=== PATIENT | male | born 1995 | race Caucasian/White ===

== ENCOUNTER 2016-05-30 14:54 | Emergency (ER) ==
[2016-05-30] MEDS ORDERED: NS 1,000 ML IV ONE (16:00)
[2016-05-30] MEDS ORDERED: ZOFRAN IV ONE (16:01)
[2016-05-30 16:21] LABS: MANUAL DIFF NEEDED? NO
[2016-05-30 16:23] LABS: BASO% 0.2 % (0.0-0.8); EOS# 0.03 X1000 (0.0-0.7); EOS% 0.4 % (0.0-10.0); HEMATOCRIT 44.1 % (42.0-52.0); HEMOGLOBIN 15.3 g/dL (14.0-18.0); IMM GRAN# 0.01 X1000 (0.0-0.04); IMM GRAN% 0.1 % (0.0-0.5); LYMPH# 0.72 X1000 (1.2-3.4); LYMPH% 8.7 % (20.5-51.1); MCH 30.2 PG (27-31); MCHC 34.7 g/dL (33-37); MCV 87.2 FL (81-99); MONO# 0.91 X1000 (0.11-0.59); MPV 11.2 FL (7.4-10.4); NEUT% 79.6 % (42.2-75.2); PLT 146 X1000 (130-400); RBC 5.06 XMIL (4.7-6.1)
[2016-05-30 16:38] LABS: AGAP 10; ALBUMIN 5.2 g/dL (3.5-5.0); ALKALINE PHOSPHATASE 77 U/L (32-122); BUN 11 mg/dL (8-22); CHLORIDE 99 mmol/L (98-107); COSMO 270; GOT 23 U/L (10-34); GPT 21 U/L (10-44); LIPASE 14 U/L (13-60); POTASSIUM 3.8 mmol/L (3.5-5.1); SODIUM 135 mmol/L (136-145); TCO2 27 mmol/L (25-35); TOTAL PROTEIN 7.7 g/dL (6.3-8.3)
[2016-05-30 17:14] LABS: URINE SOURCE CLEAN CATCH
[2016-05-30 17:24] LABS: BILIRUBIN URINE NEGATIVE (NEGATIVE); BLOOD URINE NEGATIVE (NEGATIVE); CLARITY CLEAR (CLEAR); COLOR YELLOW; GLUCOSE URINE NEGATIVE (NEGATIVE); LEUKOCYTES URINE TRACE (NEGATIVE); NITRITE URINE NEGATIVE (NEGATIVE); PROTEIN URINE TRACE mg/dL (NEGATIVE); UROBILINOGEN URINE NORMAL
[2016-05-30 17:32] LABS: URINE CAST NONE SEEN /LPF; URINE CRYSTAL NONE SEEN /HPF; URINE CULTURE PL NEEDED? YES; URINE EPITHELIAL CELLS <10 /HPF (<10); URINE WBC <10 /HPF (<10)
[2016-05-30 17:48] VITALS: BP 124/68
--- NOTE | 2016-05-30 18:10 | PROVIDER DOCUMENTATION ---
HPI-Abdominal Pain/GI Problem - General Chief Complaint: Nausea/Vomiting Stated Complaint: N/V/D Time Seen by Provider: 05/30/16 16:00 Source: patient, family Allergies/Adverse Reactions: Patient Allergies Allergy/AdvReac Type Severity Reaction Status Date / Time No Known Allergies Allergy Verified 10/16/15 17:57 Home Medications: Home Medication List Medication Instructions Recorded Confirmed Last Taken Type Ondansetron [Zofran] 4 mg PO Q6H PRN PRN #15 tablet 10/16/15 Unknown Rx Ondansetron Odt [Zofran 4 mg Odt] 4 mg PO Q6H PRN PRN #20 tablet 05/30/16 Unknown Rx - History of Present Illness-ABD Nature of Presenting Problems: This pt presents today c complaints of n/v X 24 hours. He and his parents report that he sometimes has "vomiting spells" where he vomits for 1-2 days and gets dehydrated. Denies any abdominal pains. No fever, chills. No other issues or complaints. Quality of Pain: reports: none Severity in ED: reports: moderate Onset/Duration: reports: 24 hours ago Timing: reports: still present Modifying Factors: improves with: vomiting Associated Symptoms: reports: nausea, vomiting Last BM: this morning Dark Stools Present?: reports: none noticed Rectal Bleeding: reports: none Rectal Pain: reports: none Emesis Description: reports: clear Bruising or Bleeding Gums?: No Similar Symptoms Previously?: Yes Recently seen or treated by another doctor?: No Review of Systems - Adult - REVIEW OF SYSTEMS - ADULT Constitutional: reports: no symptoms reported. denies: chills, fever Eyes: reports: no symptoms reported. denies: discharge, dry eyes Ears, Nose, Mouth & Throat: reports: no symptoms reported. denies: ear discharge, ear pain Cardiovascular: reports: no symptoms reported. denies: chest pain, edema Respiratory: reports: no symptoms reported. denies: chronic cough, cough Gastrointestinal: reports: nausea, vomiting. denies: abdominal pain, hematemesis, diarrhea, difficulty swallowing, rectal bleeding Genitourinary: reports: no symptoms reported. denies: dysuria, discharge Musculoskeletal: reports: no symptoms reported. denies: bone pain, back pain Integumentary: reports: no symptoms reported. denies: hives, hair loss Neurological: reports: no symptoms reported. denies: ataxia, dizziness/vertigo Psychiatric: reports: no symptoms reported. denies: anxiety, anti-depressant use Endocrine: reports: no symptoms reported Hematologic/Lymphatic: reports: no symptoms reported Allergic/Immunologic: reports: no symptoms reported All Other Systems: Reviewed and Negative Past History - Adult - PAST MEDICAL HISTORY-ADULT Review of Records: reports: Old Records Reviewed, Nursing Assessment Review, Medications Reviewed, Social history reviewed & non-contributory. Major Childhood Illnesses: reports: denies history Cardiovascular: reports: denies history Respiratory: reports: denies history Gastrointestinal: reports: denies history Obstetrical/Gynecological: reports: denies history Genitourinary: reports: denies history Musculoskeletal: reports: denies history Neurological: reports: denies history Psychiatric: reports: other (panic attacks) Endocrine/Immune: reports: denies history Other Conditions: reports: denies history - PRIOR SURGERIES/PROCEDURES Surgical/Procedure History: reports: none - IMMUNIZATION STATUS Childhood Immunizations: See Nurse Assessment Flu Vaccine: See Nurse Assessment - FAMILY HISTORY Family History: reviewed, not pertinent Physical Exam-General - PHYSICAL EXAM-ADULT Initial Vital Signs Reviewed: Yes - CONSTITUTIONAL General Appearance: appears well, alert, no apparent distress - EYES Eyes: PERRL/EOMI, pink conjunctivae - HEAD, EARS, NOSE, MOUTH & THROAT HENMT: normocephalic/atraumatic, moist mucous membranes, normal ENT inspection - NECK Neck: non-tender, full range of motion, supple - RESPIRATORY Respiratory: chest non-tender, lungs clear, normal breath sounds, no pleuratic chest pain, no respiratory distress, no accessory muscle use. negative: respiratory distress, decreased breath sounds, accessory muscle use - CARDIOVASCULAR Cardiovascular: normal peripheral pulses, regular rate, rhythm, no edema, no gallop, no JVD, no murmur. negative: bradycardia, tachycardia - GASTROINTESTINAL (ABDOMEN) Abdominal Exam: normal bowel sounds, non tender, soft, no organomegaly, no pulsatile mass. negative: abdominal bruit, abnormal bowel sounds, distended, guarding, rigid, rebound, tenderness - MUSCULOSKELETAL Back Exam: normal inspection, no CVA tenderness, no vertebral tenderness Extremity: normal range of motion, non-tender, normal gait, normal inspection - SKIN Integumentary: normal color, normal turgor, warm/dry - NEUROLOGIC Neurologic: grossly normal, no motor/sensory deficits - PSYCHIATRIC Psych/Mental Status: normal mood/affect, normal thought content, normal thought process, oriented x 3 Progress - PLAN OF CARE/RESULTS Progress/Plan/Lab Results: Laboratory Tests 05/30/16 05/30/16 05/30/16 16:10 16:10 16:48 WBC 8.25 RBC 5.06 Hgb 15.3 Hct 44.1 MCV 87.2 MCH 30.2 MCHC 34.7 RDW Std Deviation 13.1 Plt Count 146 MPV 11.2 H Immature Gran % (Auto) 0.1 Neut % (Auto) 79.6 H Lymph % (Auto) 8.7 L [place] % (Auto) 11.0 H Eos % (Auto) 0.4 Baso % (Auto) 0.2 Immature Gran # (Auto) 0.01 Neut # (Auto) 6.56 H Lymph # (Auto) 0.72 L [place] # (Auto) 0.91 H Eos # (Auto) 0.03 Baso # (Auto) 0.02 Sodium 135 L Potassium 3.8 Chloride 99 Carbon Dioxide 27 Anion Gap 10 BUN 11 Creatinine 0.9 Estimated GFR/1.73 m2 > 60 BUN/Creatinine Ratio 12 Glucose 107 H Calculated Osmolality 270 Calcium 10.0 Total Bilirubin 1.00 AST 23 ALT 21 Alkaline Phosphatase 77 Total Protein 7.7 Albumin 5.2 H Globulin 3.0 Albumin/Globulin Ratio 2.0 Lipase 14 Urine Source CLEAN CATCH Urine Color YELLOW Urine Clarity CLEAR Urine pH 7.0 Ur Specific Carlos 1.010 Urine Protein TRACE A Urine Ketones 2+(Moderate) A Urine Blood NEGATIVE Urine Nitrite NEGATIVE Urine Bilirubin NEGATIVE Urine Urobilinogen NORMAL Urine Microscopic RBC Not Reportable Urine WBC TRACE A Urine Microscopic WBC <10 Ur Epithelial Cells <10 Urine Crystals NONE SEEN Urine Bacteria 1+ Urine Casts NONE SEEN Urine Yeast NONE SEEN Urine Glucose NEGATIVE Orders Category Date Time Status Saline Loc NOW Care 05/30/16 16:00 Active CBC WITH DIFF [HEME] Stat Lab 05/30/16 16:10 Completed COMPREHENSIVE METABOLIC PANEL [CHEM] Stat Lab 05/30/16 16:10 Completed LIPASE [CHEM] Stat Lab 05/30/16 16:[address] W/POSS RFLX CULT [URINALYSIS] Stat Lab 05/30/16 16:48 Completed URINE CULTURE [RM] Routine Lab 05/30/16 17:32 Ordered 0.9% Sodium Chloride Inj [Ns] 1,000 ml Med 05/30/16 16:00 Discontinued IV 999 mls/hr Ondansetron [Zofran] Med 05/30/16 16:01 Discontinued 4 mg IV NOW ONE Vital Signs Temp Pulse Resp BP Pulse Ox 05/30/16 17:48 98 F 86 14 124/68 98 05/30/16 15:03 98.8 F 78 20 144/65 100 No Known Allergies Allergy (Verified 10/16/15 17:57) Ondansetron [Zofran] 4 mg PO Q6H PRN PRN #15 tablet 10/16/15 Laboratory 05/30/16 05/30/16 05/30/16 16:48 16:10 16:10 WBC 8.25 RBC 5.06 Hgb 15.3 Hct 44.1 MCV 87.2 MCH 30.2 MCHC 34.7 RDW Std Deviation 13.1 Plt Count 146 MPV 11.2 H Immature Gran % (Auto) 0.1 Neut % (Auto) 79.6 H Lymph % (Auto) 8.7 L [place] % (Auto) 11.0 H Eos % (Auto) 0.4 Baso % (Auto) 0.2 Immature Gran # (Auto) 0.01 Neut # (Auto) 6.56 H Lymph # (Auto) 0.72 L [place] # (Auto) 0.91 H Eos # (Auto) 0.03 Baso # (Auto) 0.02 Sodium 135 L Potassium 3.8 Chloride 99 Carbon Dioxide 27 Anion Gap 10 BUN 11 Creatinine 0.9 Estimated GFR/1.73 m2 > 60 BUN/Creatinine Ratio 12 Glucose 107 H Calculated Osmolality 270 Calcium 10.0 Total Bilirubin 1.00 AST 23 ALT 21 Alkaline Phosphatase 77 Total Protein 7.7 Albumin 5.2 H Globulin 3.0 Albumin/Globulin Ratio 2.0 Lipase 14 Urine Source CLEAN CATCH Urine Color YELLOW Urine Clarity CLEAR Urine pH 7.0 Ur Specific [place] 1.010 Urine Protein TRACE A Urine Ketones 2+(Moderate) A Urine Blood NEGATIVE Urine Nitrite NEGATIVE Urine Bilirubin NEGATIVE Urine Urobilinogen NORMAL Urine Microscopic RBC Not Reportable Urine WBC TRACE A Urine Microscopic WBC <10 Ur Epithelial Cells <10 Urine Crystals NONE SEEN Urine Bacteria 1+ Urine Casts NONE SEEN Urine Yeast NONE SEEN Urine Glucose NEGATIVE Pt is feeling very well. Symptoms have resolved. Will d/c home. They are in agreement. Departure - Departure Time of Disposition Order: 18:09 DIAGNOSIS: Nausea & vomiting Qualifiers: Vomiting type: unspecified Vomiting Intractability: non-intractable Qualified Code(s): R11.2 - Nausea with vomiting, unspecified Disposition: HOME 01 Certified Medical Emergency: Emergent Condition: Good Additional Instructions: Take medication as prescribed. Rest and stay well hydrated. Eat a bland diet. Follow up with your primary care provider. ED Follow Up Instructions: You have been treated by a care provider in the Emergency Department. These instructions are being provided to you so you can have an understanding of how to care for yourself upon discharge. Upon discharge from the Emergency Department, you are responsible for making arrangements for follow-up care by a physician of your choice. Take all prescribed medications as directed. Return to the Emergency Department immediately for any new or worsening symptoms. You may call the Physician Referral phone number at [phone] to obtain a list of Physicians who are taking new patients. Prescriptions: Ondansetron Odt [Zofran 4 mg Odt] 4 mg PO Q6H PRN PRN #20 tablet PRN Reason: Nausea Referrals: Inder Guzmán [Primary Care Provider] - Attestation - Physician/ TUNG Attestation Patient care was provided by Advanced Practice Provider:: Yes Advanced Practice Provider:: Praveen Garcia Advanced Practice Provider documentation review:: The Mid-level provider documentation, treatment plan and medical decision making was reviewed by the physician who agrees with all treatment and medical decision making by the P.
== END 2016-05-30 18:28 | disposition home or self-care (01) ==
LOC: P.ED 14:54
DX: R11.2 Nausea with vomiting, unspecified (principal)
CPT/HCPCS: 80053; 81001; 83690; 85025; 87088; 96361; 96374; J2405; J7030